=== PATIENT | male | born 1990 | race Hispanic/Latino ===

== ENCOUNTER → 2023-06-22 | Emergency (ER) | payer OTHER ==
[~2023-06-22] MED LIST: ACETAMINOPHEN 500 MG TAB ONE; DIPHENHYDRAMINE 50 MG/ML VIAL ONE; KETOROLAC 30 MG/ML INJ ONE; MECLIZINE HCL 12.5 MG TAB ONE; METOCLOPRAMIDE 10 MG/2mL INJ ONE; NA CHLORIDE 0.9% 1,000 ML ONE
--- NOTE | 2023-06-22 09:41 | RAD REPORT ---
EXAM DESCRIPTION: CT - Head Brain Wo Cont - 06/22/2023 9:22 am CLINICAL HISTORY: Headache COMPARISON: none TECHNIQUE: Computed axial tomography of the head was obtained. IV contrast was not requested. All CT scans are performed using dose optimization technique as appropriate and may include automated exposure control or mA/KV adjustment according to patient size. FINDINGS: An intracranial bleed is not seen The ventricles are normal in caliber No significant hypodense areas within the brain visualized No extra-axial fluid collection is noted. Fluid within the sinuses/ mastoids is not seen. Mucous retention cyst left maxillary sinus IMPRESSION: No acute intracranial abnormality is seen If patient's symptoms persist MRI of the brain would be recommended
--- NOTE | 2023-06-22 10:24 | EDPHYS ---
Physician Documentation [facility] Name: Silvio Flower Age: 32 yrs Sex: Male : 1990 Arrival Date: 06/22/2023 Time: 08:39 Bed 18 Private MD: ED Physician Jorge Alberto Morrell HPI: 06/22 09:12 This 32 yrs old Male presents to ER via Ambulatory with complaints of rt Dizziness, Headache. 09:12 Patient presents to the ED with dizziness, described as spinning sensation as well as a rt frontal headache that radiates to the posterior head. He has had this episode before couple weeks ago, resolved with Tylenol. Denies other acute complaints at this time. Symptoms are moderate in severity, aching nature, not otherwise radiating, no other aggravating or alleviating factors.. Historical: - Allergies: 08:58 No Known Allergies; ap3 - Home Meds: 08:58 None [Active]; ap3 - PMHx: 08:58 None; ap3 - PSHx: 08:58 None; ap3 - Immunization history:: Adult Immunizations up to date. - Social history:: Smoking status: Patient denies any tobacco usage or history of. - Family history:: not pertinent. ROS: 09:12 Constitutional: Negative for fever, chills, and weight loss, Cardiovascular: Negative rt for chest pain, palpitations, and edema, Respiratory: Negative for shortness of breath, cough, wheezing, and pleuritic chest pain, MS/Extremity: Negative for injury and deformity, Skin: Negative for injury, rash, and discoloration, Psych: Negative for depression, anxiety, suicide ideation, homicidal ideation, and hallucinations, 09:12 Abdomen/GI: Positive for nausea, Negative for abdominal pain, vomiting, 09:12 Neuro: Positive for dizziness, headache, Exam: 09:12 Constitutional: This is a well developed, well nourished patient who is awake, alert, rt and in no acute distress. Head/Face: Normocephalic, atraumatic. Chest/axilla: Normal chest wall appearance and motion. Nontender with no deformity. No lesions are appreciated. Cardiovascular: Regular rate and rhythm with a normal S1 and S2. No gallops, murmurs, or rubs. Normal PMI, no JVD. No pulse deficits. Respiratory: Lungs have equal breath sounds bilaterally, clear to auscultation and percussion. No rales, rhonchi or wheezes noted. No increased work of breathing, no retractions or nasal flaring. Abdomen/GI: Soft, non-tender, with normal bowel sounds. No distension or tympany. No guarding or rebound. No evidence of tenderness throughout. Skin: Warm, dry with normal turgor. Normal color with no rashes, no lesions, and no evidence of cellulitis. MS/ Extremity: Pulses equal, no cyanosis. Neurovascular intact. Full, normal range of motion. Psych: Awake, alert, with orientation to person, place and time. Behavior, mood, and affect are within normal limits. 09:12 Eyes: 2-3 beats of left going nystagmus, extraocular muscles are intact, conjunctiva is normal, head impulse and test of skew negative. 09:12 Neuro: Cranial nerves II through XII intact, speech normal, no ataxia [id number], strength and sensation intact in upper and lower extremities, Vital Signs: 08:54 BP 130 / 82; Pulse 79; Resp 16; Temp 97.8(O); Pulse Ox 100% on R/A; Weight 113.4 kg; ap3 Height 5 ft. 11 in. ; Pain 6/10; 09:56 BP 144 / 97; Pulse 81; Resp 18; Pulse Ox 98% on R/A; ph 11:13 BP 125 / 92; Pulse 87; Resp 18; Pulse Ox 100% ; cp4 08:54 Body Mass Index 34.87 (113.40 kg, 180.34 cm) ap3 08:54 Pain Scale: Adult ap3 MDM: 08:54 Patient medically screened. rt 10:24 Differential diagnosis: Migraine, general headache, positional vertigo intracranial rt hemorrhage, intracranial hemorrhage, tumor. Data reviewed: vital signs, nurses notes, radiologic studies. I considered the following discharge prescriptions or medication management in the emergency department Medications were administered in the Emergency Department. See MAR. Independent interpretation of the following test(s) in the Emergency Department CT Scan: My interpretation is No hemorrhage seen on interpretation of CT scan images. Test considered but Not performed: MRI: HI NTS exam is consistent with a peripheral vertigo, lower suspicion for central vertigo, no risk factors for CVA, MRI not indicated. Counseling: I had a detailed discussion with the patient and/or guardian regarding the historical points, exam findings, and any diagnostic results supporting the discharge/admit diagnosis, radiology results, the need for outpatient follow up, to return to the emergency department if symptoms worsen or persist or if there are any questions or concerns that arise at home. Response to treatment: the patient's symptoms have markedly improved after treatment. 06/22 09:06 Order name: CT Head Brain wo Cont; Complete Time: 09:43 rt Administered Medications: 09:53 Drug: Acetaminophen PO 1000 mg PO once Route: PO; ph 11:15 Follow up: Response: No adverse reaction cp4 09:53 Drug: Ketorolac IVP 15 mg IVP once Route: IVP; Site: right wrist; ph 11:15 Follow up: Response: No adverse reaction cp4 09:53 Drug: metoCLOPramide IVP 10 mg IVP once; over 1 to 2 minutes Route: IVP; Site: right ph wrist; 11:15 Follow up: Response: No adverse reaction cp4 09:53 Drug: diphenhydrAMINE IVP 25 mg IVP once Route: IVP; Site: right wrist; ph 11:15 Follow up: Response: No adverse reaction cp4 09:54 Drug: Meclizine PO 50 mg PO once Route: PO; ph 11:15 Follow up: Response: No adverse reaction cp4 09:54 Drug: NS 0.9% IV 1000 ml IV at 1 bolus Per protocol; 1000 mL bolus Route: IV; Rate: 1 ph bolus; Site: right wrist; 11:15 Follow up: Response: No adverse reaction; IV Status: Completed infusion cp4 Disposition Summary: 06/22/23 10:24 Discharge Ordered Notes: Location: Home rt Problem: new rt Symptoms: are resolved rt Condition: Stable rt Diagnosis - Headache rt - Benign paroxysmal vertigo rt Followup: rt - With: Private Physician - When: 2 - 3 days - Reason: Discharge Instructions: - Discharge Summary Sheet rt - Benign Positional Vertigo rt - General Headache Without Cause rt Forms: - Work release form eb - Medication Reconciliation Form rt - Thank You Letter rt - Antibiotic Education rt - Prescription Opioid Use rt - Patient Portal Instructions rt - Leadership Thank You Letter rt Signatures: Dispatcher [employer] Indira Graves RN RN [facility] HospitalKisha lindsay RN RN ap3 Jorge Alberto Morrell MD MD Andressa Krishna cp4
--- NOTE | 2023-06-22 10:24 | ER ---
[facility] Name: Silvio Flower Age: 32 yrs Sex: Male : 1990 Arrival Date: 06/22/2023 Time: 08:39 Bed 18 Private MD: Diagnosis: Headache;Benign paroxysmal vertigo Presentation: 06/22 08:54 Chief complaint: Headache that radiates to neck and upper back, dizziness, and nausea ap3 upon waking today. Coronavirus screen: At this time, the client does not indicate any symptoms associated with coronavirus-19. Ebola Screen: No symptoms or risks identified at this time. Initial Sepsis Screen: Does the patient meet any 2 criteria? No. Patient's initial sepsis screen is negative. Does the patient have a suspected source of infection? No. Patient's initial sepsis screen is negative. Risk Assessment: Do you want to hurt yourself or someone else? Patient reports no desire to harm self or others. Onset of symptoms was June 22, 2023. 08:54 Method Of Arrival: Ambulatory ap3 08:54 Acuity: HILDA 3 ap3 Triage Assessment: 11:16 Headache History: Denies prior headaches. General: Appears in no apparent distress. cp4 Behavior is calm, cooperative, appropriate for age. Pain: Also complains of. Pain: Pain at worst was 10 out of 10 on a pain scale. Pain began suddenly. Historical: - Allergies: 08:58 No Known Allergies; ap3 - Home Meds: 08:58 None [Active]; ap3 - PMHx: 08:58 None; ap3 - PSHx: 08:58 None; ap3 - Immunization history:: Adult Immunizations up to date. - Social history:: Smoking status: Patient denies any tobacco usage or history of. - Family history:: not pertinent. Screenin:55 [facility] ED Fall Risk Assessment (Adult) History of falling in the last 3 months, ph including since admission No falls in past 3 months (0 pts) Score/Fall Risk Level 0 - 2 = Low Risk Oriented to surroundings, Maintained a safe environment, Provided non-skid footwear, Hourly rounding (assess needs \T\ fall precautionary measures) done. Abuse screen: Denies threats or abuse. Denies injuries from another. Nutritional screening: No deficits noted. Tuberculosis screening: No symptoms or risk factors identified. Assessment: 09:54 General: Appears in no apparent distress. comfortable, well groomed, Behavior is calm, ph cooperative, appropriate for age. Pain: Complains of pain in top of head and forehead. Neuro: Level of Consciousness is awake, alert, obeys commands, Oriented to person, place, time, situation, Reports dizziness, headache frontal area. Cardiovascular: Capillary refill < 3 seconds in bilateral fingers Patient's skin is warm and dry. Respiratory: Airway is patent Respiratory effort is even, unlabored. GI: Reports nausea, Patient currently denies abdominal pain, vomiting. Derm: Skin is pink, warm \T\ dry. Musculoskeletal: Circulation, motion, and sensation intact. Range of motion: intact in all extremities. Vital Signs: 08:54 BP 130 / 82; Pulse 79; Resp 16; Temp 97.8(O); Pulse Ox 100% on R/A; Weight 113.4 kg; ap3 Height 5 ft. 11 in. ; Pain 6/10; 09:56 BP 144 / 97; Pulse 81; Resp 18; Pulse Ox 98% on R/A; ph 11:13 BP 125 / 92; Pulse 87; Resp 18; Pulse Ox 100% ; cp4 08:54 Body Mass Index 34.87 (113.40 kg, 180.34 cm) ap3 08:54 Pain Scale: Adult ap3 ED Course: 08:40 Patient arrived in ED. rg4 08:51 Jorge Alberto Morrell MD is Attending Physician. rt 08:58 Triage completed. ap3 08:58 Arm band placed on. ap3 09:09 Indira Ko RN is Primary Nurse. ph 09:24 CT Head Brain wo Cont In Process Unspecified. EDMS 09:55 Patient has correct armband on for positive identification. Placed in gown. Bed in low ph position. Side rails up X 1. Pulse ox on. NIBP on. Door closed. Noise minimized. Warm blanket given. 09:55 Inserted saline lock: 22 gauge in right wrist, using aseptic technique. ph 11:14 Provided Education on: vertigo. cp4 11:14 No provider procedures requiring assistance completed. intact, bleeding controlled, No cp4 redness/swelling at site. Pressure dressing applied. Administered Medications: 09:53 Drug: Acetaminophen PO 1000 mg PO once Route: PO; ph 11:15 Follow up: Response: No adverse reaction cp4 09:53 Drug: Ketorolac IVP 15 mg IVP once Route: IVP; Site: right wrist; ph 11:15 Follow up: Response: No adverse reaction cp4 09:53 Drug: metoCLOPramide IVP 10 mg IVP once; over 1 to 2 minutes Route: IVP; Site: right ph wrist; 11:15 Follow up: Response: No adverse reaction cp4 09:53 Drug: diphenhydrAMINE IVP 25 mg IVP once Route: IVP; Site: right wrist; ph 11:15 Follow up: Response: No adverse reaction cp4 09:54 Drug: Meclizine PO 50 mg PO once Route: PO; ph 11:15 Follow up: Response: No adverse reaction cp4 09:54 Drug: NS 0.9% IV 1000 ml IV at 1 bolus Per protocol; 1000 mL bolus Route: IV; Rate: 1 ph bolus; Site: right wrist; 11:15 Follow up: Response: No adverse reaction; IV Status: Completed infusion cp4 Medication: 09:55 VIS not applicable for this client. ph Outcome: 10:24 Discharge ordered by . rt 11:14 Discharged to home ambulatory, cp4 11:14 Condition: stable 11:14 Discharge instructions given to patient, Instructed on discharge instructions, follow up and referral plans. Demonstrated understanding of instructions, follow-up care, 11:17 Patient left the ED. cp4 Signatures: Dispatcher [employer] Indira Graves RN RN ph Garcia, Rubi rg4 Kisha Herrera RN RN ap3 Jorge Alberto Morrell MD MD rt Potter, Christina cp4
[2023-06-22 12:07] VITALS: BP 125/92; TEMP 97.8; O2SAT 100
== END ==
LOC: ER 08:39
DX: R51.9 Headache, unspecified (principal); R42 Dizziness and giddiness; R11.0 Nausea
CPT/HCPCS: 70450; J8597; J2765; J1200; J7030